=== PATIENT | male | born 1940 | race Caucasian/White ===

== ENCOUNTER 2017-03-27 07:43 | Day surgery (SDC) | payer OTHER, BC ==
[2017-03-26 15:47] VITALS: BMI 26.0
[2017-03-27] MEDS ORDERED: PROPOFOL 20 ML ONE ×2 (08:34)
[2017-03-27 09:24] VITALS: TEMP 97.8
[2017-03-27 10:11] VITALS: BP 107/53; PULSE 74
== END 2017-03-27 10:15 | disposition home or self-care (01) ==
LOC: JASU-SURG 07:43
PROVIDERS: ATTEND Internal Medicine Gastroenterology
PROC: 0W3P8ZZ Control Bleeding in Gastrointestinal Tract, Via Natural or Artificial Opening Endoscopic (ICD-10-PCS; principal; 2017-03-27 08:30)
DX: K55.21 Angiodysplasia of colon with hemorrhage (principal); K62.7 Radiation proctitis; I78.8 Other diseases of capillaries; K57.30 Diverticulosis of large intestine without perforation or abscess without bleeding; Z85.46 Personal history of malignant neoplasm of prostate

== ENCOUNTER 2017-12-30 11:22 | Inpatient (IN) | payer OTHER, BC ==
[2017-12-30 18:08] VITALS: BMI 23.7
[2018-01-02 06:22] VITALS: BP 112/54; PULSE 74; TEMP 98.9
== END 2018-01-02 12:47 | disposition home or self-care (01) | DRG 202 ==
LOC: FER 11:22 → FM/S 15:55 → OBSVTOIN 01-01 14:55
PROVIDERS: ADMIT Internal Medicine; ATTEND Nurse Practitioner Family
DX: J20.9 Acute bronchitis, unspecified (principal); E87.1 Hypo-osmolality and hyponatremia; I85.00 Esophageal varices without bleeding; I24.8 Other forms of acute ischemic heart disease; I50.30 Unspecified diastolic (congestive) heart failure; I11.0 Hypertensive heart disease with heart failure; R74.0 Nonspecific elevation of levels of transaminase and lactic acid dehydrogenase [LDH]; E78.00 Pure hypercholesterolemia, unspecified; D69.6 Thrombocytopenia, unspecified; E78.5 Hyperlipidemia, unspecified; I25.10 Atherosclerotic heart disease of native coronary artery without angina pectoris; E11.42 Type 2 diabetes mellitus with diabetic polyneuropathy; I07.1 Rheumatic tricuspid insufficiency; I48.91 Unspecified atrial fibrillation; I25.2 Old myocardial infarction; I71.2 Thoracic aortic aneurysm, without rupture; D53.9 Nutritional anemia, unspecified; K70.30 Alcoholic cirrhosis of liver without ascites; M10.9 Gout, unspecified; I77.6 Arteritis, unspecified; K57.90 Diverticulosis of intestine, part unspecified, without perforation or abscess without bleeding; Z85.46 Personal history of malignant neoplasm of prostate; Z95.0 Presence of cardiac pacemaker; Z95.2 Presence of prosthetic heart valve
CPT/HCPCS: 36415; 71046-TC-FY; 71250-TC; 80048; 80053; 80162; 82550; 82553; 82962; 83735; 84100; 84450; 84460; 84484; 85025; 85027; 93005; 93306-TC; 94640; 99284-25; G0378; J1644

== ENCOUNTER 2019-11-18 09:44 | Day surgery (SDC) | payer OTHER, BC ==
[2019-11-17 14:14] VITALS: BMI 26.2
[2019-11-18 10:45] VITALS: TEMP 97.9
[2019-11-18 11:43] VITALS: BP 136/63; PULSE 72
== END 2019-11-18 12:10 | disposition home or self-care (01) ==
LOC: JASU-ENDO 09:44
PROVIDERS: ATTEND Internal Medicine Gastroenterology
PROC: 0DJ08ZZ Inspection of Upper Intestinal Tract, Via Natural or Artificial Opening Endoscopic (ICD-10-PCS; principal; 2019-11-18 10:15)
DX: Z13.810 Encounter for screening for upper gastrointestinal disorder (principal); I86.4 Gastric varices; K31.9 Disease of stomach and duodenum, unspecified; E11.9 Type 2 diabetes mellitus without complications; G40.909 Epilepsy, unspecified, not intractable, without status epilepticus; Z85.46 Personal history of malignant neoplasm of prostate; K74.60 Unspecified cirrhosis of liver; I35.0 Nonrheumatic aortic (valve) stenosis